=== PATIENT | male | born 1995 | race Caucasian/White ===

== ENCOUNTER 2021-07-14 07:29 | Emergency (ER) | payer SELFPAY ==
[~2021-07-14] VITALS: Ht 167.6 cm; Wt 86.2 kg
--- NOTE | 2021-07-14 07:30 | NUR ---
AT BEDSIDE FOR EVAL.
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
[2021-07-14] MEDS ORDERED: ACETAMINOPHEN ES 500 MG TABLET ONE (07:37)
--- NOTE | 2021-07-14 07:46 | NUR ---
X-RAY TECH. AT BED SIDE
[2021-07-14] MEDS ORDERED: ACETAMINOPHEN ES 500 MG TABLET PO ONE (08:00)
--- NOTE | 2021-07-14 08:10 | NUR ---
[employer] AT BEDSIDE.
[2021-07-14] MEDS ORDERED: FENTANYL PF 100MCG/2ML AMPUL ONE (08:26)
[2021-07-14] MEDS ORDERED: FENTANYL PF 100MCG/2ML AMPUL IV ONE (08:30)
--- NOTE | 2021-07-14 08:50 | NUR ---
PATIENT SUSTAINED FRACTURE OF THE R ELBOW. FRACTURE REDUCTION DONE BY DR RUDD AND ORTHO GLASS CAST APPLIED.
--- NOTE | 2021-07-14 08:55 | NUR ---
X-RAY TECH. CALLED FOR REPEAT X-RAY OF THE R ELBOW.
--- NOTE | 2021-07-14 09:00 | NUR ---
X-RAY TECH. AT BED SIDE
--- NOTE | 2021-07-14 09:12 | NUR ---
CALLED DR. MAYA [phone] WILL SEND A MSG.
[2021-07-14] MEDS ORDERED: HYDR-4303 PO ×2 (09:46→09:53)
[2021-07-14] MEDS ORDERED: IBUP-1955 PO ×2 (09:46→09:53)
--- NOTE | 2021-07-14 10:07 | NUR ---
IV removed. Catheter intact and site benign. Pressure and 4x4 applied to site. No bleeding noted.Patient discharged to home in stable condition. Written and verbal after care instructions given. Patient verbalizes understanding of instruction.
[2021-07-14 10:08] VITALS: BP 120/70
== END 2021-07-14 10:10 | disposition home or self-care (01) ==
LOC: ER 07:33
DX: S52.121A Displaced fracture of head of right radius, initial encounter for closed fracture (principal); S52.001A Unspecified fracture of upper end of right ulna, initial encounter for closed fracture; S09.90XA Unspecified injury of head, initial encounter; V49.49XA Driver injured in collision with other motor vehicles in traffic accident, initial encounter; Y93.89 Activity, other specified; Y92.413 State road as the place of occurrence of the external cause; Y99.8 Other external cause status
CPT/HCPCS: 24620; 71045; 73080 ×2; 73090; 99284; J3010